=== PATIENT | male | born 1995 | race American Indian/Alaskan Native ===

== ENCOUNTER 2016-07-21 10:19 | Outpatient (CLI) | payer OTHER ==
[2016-07-21] MEDS ORDERED: XYLOCAINE TOPICAL 2% ONE (11:07)
[2016-07-21] MEDS ORDERED: SILVER NITRATE TP ONE ×2 (11:47→12:26)
[2016-07-21] MEDS ORDERED: XYLOCAINE TOPICAL 4% TP ONE (12:26)
== END 2016-07-21 10:20 | disposition home or self-care (01) ==
LOC: WOUND 10:19
PROVIDERS: ATTEND Surgery
DX: S30.22XA Contusion of scrotum and testes, initial encounter (principal); W22.01XA Walked into wall, initial encounter; Y93.89 Activity, other specified; Y92.89 Other specified places as the place of occurrence of the external cause; Y99.8 Other external cause status; F17.210 Nicotine dependence, cigarettes, uncomplicated; Z72.89 Other problems related to lifestyle; N50.82 Scrotal pain
CPT/HCPCS: 17250; G0463; 99204

== ENCOUNTER 2016-07-28 10:49 | Outpatient (CLI) | payer OTHER | END 2016-07-28 10:50 | disposition home or self-care (01) | LOC: WOUND 10:49 | PROVIDERS: ATTEND Surgery | DX: S30.22XA Contusion of scrotum and testes, initial encounter (principal); F17.210 Nicotine dependence, cigarettes, uncomplicated; X58.XXXA Exposure to other specified factors, initial encounter; Y93.89 Activity, other specified; Y92.89 Other specified places as the place of occurrence of the external cause; Y99.8 Other external cause status | CPT/HCPCS: 99213; G0463 ==

== ENCOUNTER → 2019-07-29 | Emergency (ER) | payer BC ==
[~2019-07-29] MED LIST: CLINDAMYCIN 150 MG/ML VIAL 6 ML IM ONE
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
== END | disposition home or self-care (01) ==
LOC: ED 13:46
DX: L03.114 Cellulitis of left upper limb (principal); F17.200 Nicotine dependence, unspecified, uncomplicated; F12.10 Cannabis abuse, uncomplicated; Z79.899 Other long term (current) drug therapy
CPT/HCPCS: 96372; 99282